=== PATIENT | male | born 1965 | race Caucasian/White ===

== ENCOUNTER 2021-08-03 00:08 | Emergency (ER) | payer OTHER ==
[~2021-08-03] VITALS: Ht 175.3 cm; Wt 94.2 kg
--- NOTE | 2021-08-03 00:22 | PHYS DOC ---
Past History Past Medical History: Cancer Past Medical History thyroid cancer- Surgery 2006,2008, 2009, , Radiation, 2019 glottic scarring General Adult HPI: HPI: " I was uriating and I guess black out .. Hit my head... " " I ve had thyroid cancer.. and a bunch of treatments... " I have passed out before.." Patient is a 55 year old male who presents with syncope while urinating. Patient fell forward from sitting position and struck his head and face. Patient only had transient loss of consciousness. Has contusions over left side of face and eye. Patient denies any recent changes in medication. No recent travel. No specific ill contacts. Up-to-date with vaccinations. Follows with primary Dr. Patel. GSC 15. NIH. 0 initial exam completed in Radiology just before CT. No history of fever refill chills. Has had COVID vaccination. Currently following for his thyroid cancer. Review of Systems: Review of Systems: Constitutional: Denies fever or chills Eyes: Denies change in visual acuity HENT: Complains of head and facial contusion Respiratory: Denies cough or shortness of breath Cardiovascular: Denies chest pain or edema GI: Denies abdominal pain, nausea, vomiting, bloody stools or diarrhea : Denies dysuria Musculoskeletal: Denies back pain or joint pain Integument: Denies rash Neurologic: Denies headache, focal weakness or sensory changes Endocrine: Denies polyuria or polydipsia Lymphatic: Denies swollen glands Psychiatric: Denies depression or anxiety Family History: Family History: Noncontributory to presentation Current Medications: Current Meds: See nursing for home meds Allergies: Allergies: No known drug allergies Physical Exam: PE: Constitutional: Well developed, well nourished, no acute distress, non-toxic appearance. [] HENT: Normocephalic, contusion over forehead and left occipital region, bilateral external ears normal, oropharynx moist, no oral exudates, nose normal. [] Eyes: PERRLA, EOMI, conjunctiva normal, no discharge. [] No field loss. Limited fundi exam benign. No visual changes. Neck: Normal range of motion, no tenderness, supple, no stridor. Scarring. No bruit Cardiology-regular rate and rhythm no appreciable murmur. Lungs & Thorax: Bilateral breath sounds clear to auscultation [] Abdomen: Bowel sounds normal, soft, no tenderness, no masses, no pulsatile masses. [] Skin: Warm, dry, no erythema, no rash. [] Back: No tenderness, no CVA tenderness. [] Extremities: No tenderness, no cyanosis, no clubbing, ROM intact, no edema. [] Neurologic: Alert and oriented X 3, moves all extremities on request. Web Knitter equal. Distal sensory. No drift, No focal deficits noted. [] DTRs +2 patella and brachial. No drift. Web Knitter equal. Patient is ambulatory without problems Psychologic: Affect normal, judgement normal, mood normal. [] states he is currently at his baseline normal. EKG: EKG: My interpretation EKG shows a sinus bradycardia at 57 bpm. No acute morphology. Time of this EKG is 0.51. My interpretation of EKG #2 shows a sinus rhythm at 67 bpm no significant interval change from prior EKG time of this EKG is 325 hours [] Radiology/Procedures: Radiology/Procedures: [place] [address] IMAGING REPORT Signed PATIENT: TREY SUAZOOUNT: [id number] : 1965 LOCATION: ER AGE: 55 SEX: M EXAM STATUS: PRE ER ORD. PHYSICIAN: KESHAV HECTOR MD REASON: SYNCOPE, OMNI 350, 100ml PROCEDURE: CT ANGIOGRAPHY CHEST CTA Chest with contrast: Clinical History: Syncope Shortness of breath. Axial helical images of the chest were obtained after the administration of 100 cc of IV Omni 350 and timed appropriately for a pulmonary arterial study. Conventional axial reconstruction was performed in addition to coronal, sagittal and bilateral oblique MIP (maximum intensity projection). This study was ordered to detect possible pulmonary embolism. There are no filling defects to suggest pulmonary embolism. The lungs and pleural margins are clear. There is no mediastinal or hilar lymphadenopathy. The thoracic aorta appears normal. Impression: 1. No evidence of pulmonary embolism. 2. No significant findings. PQRS Compliance Statement: One or more of the following individualized dose reduction techniques were utilized for this examination: 1. Automated exposure control 2. Adjustment of the mA and/or kV according to patient size 3. Use of iterative reconstruction technique Electronically signed by: Akanksha Valenzuela III, MD (08/03/2021 1:01 AM) [facility] DICTATED AND SIGNED BY: AKANKSHA VALENZUELA III, MD DATE: 08/03/2157 CC: DELMAR PATEL DO; KESHAV HECTOR MD ~MTH0 [address] [address] IMAGING REPORT Signed PATIENT: TREY SUAZO: [id number] : 1965 LOCATION: ER AGE: 55 SEX: M EXAM STATUS: PRE ER ORD. PHYSICIAN: KESHAV HECTOR MD REASON: fall - hit head PROCEDURE: CT MAXILLOFACIAL WO CONTRAST CT maxillofacial without contrast History: Fall, hit head Axial helical images of the face were obtained without contrast. Axial and coronal reconstruction was performed. The nasal septum is mostly midline. The ostiomeatal complexes are narrow but patent. The paranasal sinuses are clear. The visualized osseous structures appear intact. The orbits appear normal. Impression: No acute findings. PQRS Compliance Statement: One or more of the following individualized dose reduction techniques were utilized for this examination: 1. Automated exposure control 2. Adjustment of the mA and/or kV according to patient size 3. Use of iterative reconstruction technique Electronically signed by: Akanksha Valenzuela III, MD (08/03/2021 12:58 AM) [facility] DICTATED AND SIGNED BY: AKANKSHA VALENZUELA III, MD DATE: 08/03/2154 CC: DELMAR PATEL DO; KESHAV HECTOR MD ~MTH0 0 [[address] [address] IMAGING REPORT Signed PATIENT: TREY SUAZO: [id number] : 1965 LOCATION: ER AGE: 55 SEX: M EXAM STATUS: PRE ER ORD. PHYSICIAN: KESHAV HECTOR MD REASON: fall - hit head PROCEDURE: CT MAXILLOFACIAL WO CONTRAST CT maxillofacial without contrast History: Fall, hit head Axial helical images of the face were obtained without contrast. Axial and coronal reconstruction was performed. The nasal septum is mostly midline. The ostiomeatal complexes are narrow but patent. The paranasal sinuses are clear. The visualized osseous structures appear intact. The orbits appear normal. Impression: No acute findings. RS Compliance Statement: One or more of the following individualized dose reduction techniques were utilized for this examination: 1. Automated exposure control 2. Adjustment of the mA and/or kV according to patient size 3. Use of iterative reconstruction technique Electronically signed by: Akanksha Valenzuela III, MD (08/03/2021 12:58 AM) [facility] DICTATED AND SIGNED BY: AKANKSHA VALENZUELA III, MD DATE: 08/03/2154 CC: DELMAR PATEL DO; KESHAV HECTOR MD ~MTH0 0 ][place] [address] IMAGING REPORT Signed PATIENT: TREY SUAZOOUNT: [id number] : 1965 LOCATION: ER AGE: 55 SEX: M EXAM STATUS: PRE ER ORD. PHYSICIAN: KESHAV HECTOR MD REASON: syncope PROCEDURE: PORTABLE CHEST 1V XR CHEST 1V Clinical History: Reason: syncope / Spl. Instructions: / History: Technique: AP view of the chest was obtained at 08/03/2021 12:25 AM. Comparison: None. Findings: The cardiomediastinal silhouette is normal. The pulmonary vasculature is normal. The lungs and pleural margins are clear. Impression: No evidence of an acute cardiopulmonary process. Electronically signed by: Akanksha Valenzuela III, MD (08/03/2021 1:25 AM) [facility] DICTATED AND SIGNED BY: AKANKSHA VALENZUELA III, MD DATE: 08/03/21124 CC: DELMAR PATEL DO; KESHAV HECTOR MD ~MTH0 0 Heart Score: C/O Chest Pain: N/A HEART Score for Chest Pain: HEART Score for Chest Pain Response (Comments) Value History Slighlty/Non-Suspicious 0 ECG Normal 0 Age < 45 0 Risk Factors 1 or 2 Risk Factors 1 Troponin < Normal Limit 0 Total 1 Risk Factors: Risk Factors: DM, Current or recent (<one month) smoker, HTN, HLP, family history of CAD, obesity. Risk Scores: Score 0 - 3: 2.5% MACE over next 6 weeks - Discharge Home Score 4 - 6: 20.3% MACE over next 6 weeks - Admit for Clinical Observation Score 7 - 10: 72.7% MACE over next 6 weeks - Early Invasive Strategies Course & Med Decision Making: Course & Med Decision Making Pertinent Labs and Imaging studies reviewed. (See chart for details) Patient's x-rays and CTs were clouded to for their review. Patient return if any concerns. Risk and benefits of discharge discussed with patient. Patient defers admission at this time. Impression: 1. Syncope while Urinating 2. History of thyroid cancer [] Dragon Disclaimer: Dragon Disclaimer: This electronic medical record was generated, in whole or in part, using a voice recognition dictation system. Departure Departure: Referrals: DELMAR PATEL DO (PCP) [place] Disclaimer This chart was dictated in whole or in part using Voice Recognition software in a busy, high-work load, and often noisy Emergency Department environment. It may contain unintended and wholly unrecognized errors or omissions. KESHAV HECTOR MD Aug 03, 2021 00:22
[2021-08-03] MEDS ORDERED: IV RINGERS SOLUTION,LACTATED 1,000 ML IV SCH (00:30)
[2021-08-03 00:45] LABS: BASO % 1 % (0-3); EOS # 0.2 x10^3/uL (0.0-0.7); EOS % 3 % (0-3); HEMATOCRIT 44.8 % (39.0-53.0); HEMOGLOBIN 14.9 g/dL (13.0-17.5); LYMPH # 2.1 x10^3/uL (1.0-4.8); LYMPH % 32 % (24-48); MEAN CORPUSCULAR HEMOGLOBIN 30 pg (25-35); MEAN CORPUSCULAR HGB CONC 33 g/dL (31-37); MEAN CORPUSCULAR VOLUME 89 fL (79-100); MONO # 0.6 x10^3/uL (0.0-1.1); MONO % 10 % (0-9); NEUT # 3.6 x10^3uL (1.8-7.7); NEUT % 55 % (31-73); PLATELET COUNT 177 x10^3/uL (140-400); RED BLOOD COUNT 5.02 x10^6/uL (4.30-5.70); RED CELL DISTRIBUTION WIDTH 13.2 % (11.5-14.5); WHITE BLOOD COUNT 6.5 x10^3/uL (4.0-11.0)
[2021-08-03] MEDS ORDERED: IOHEXOL 350 MG/ML 100 ML VIAL. IV ONE ×2 (00:45→04:30)
--- NOTE | 2021-08-03 00:52 | RAD ---
CT Head W/O Contrast: History: Reason: CODE STROKE, HEADACHE, SYNCOPE, fall - hit head / Spl. Instructions: / History: Comparison: none Axial images were obtained without contrast. The le and white matter appears normal and symmetrical for the patients age. There is no mass effe ct, extraaxial fluid collections or hydrocephalus. There is no gross bleed. There is no focal loss of le-white matter distinction to suggest acute ischemia, i.e. stroke. Impression: No acute findings. End impression CT C-Spine without contrast: Clinical History: Reason: CODE STROKE, HEADACHE, SYNCOPE, fall - hit head / Spl. Instructions: / His tory: Technique: Axial helical images of the cervical spine were obtained without contrast, axial coronal and sagittal reconstruction was performed. Findings: There is no loss of vertebral body stature. There is no prevertebral soft tissue swelling. The vert ebral bodies are well aligned. The C1-C2 relationship is normal. The visualized osseous structures a ppear normal. There is straightening of the normal cervical lordosis which can be positional or can b e secondary to muscle spasm. Evaluation of the central canal is limited without contrast. Impression: No acute findings. Clinical correlation suggested. End impression These results were called to Dr. Lacy at the time of dictation. PQRS Compliance Statement: One or more of the following individualized dose reduction techniques were utilized for this examinat ion: 1. Automated exposure control 2. Adjustment of the mA and/or kV according to patient size 3. Use of iterative reconstruction technique FOR INTERNAL CODING PURPOSES Critical result: These results were called to Dr. Lacy at the time of dictation. RESULT CODE: (C) Electronically signed by: Emanuel Maradiaga III, MD (08/03/2021 12:50 AM) [facility]
[2021-08-03 00:55] LABS: CALCIUM 9.5 mg/dL (8.5-10.1); CREATININE 1.4 mg/dL (0.7-1.3); GFR 52.4; POTASSIUM 4.2 mmol/L (3.5-5.1)
--- NOTE | 2021-08-03 00:58 | EKG ---
[address] [address] Test Date: 2021-08-03 Test Time: 00:51:40 Pat Name: TREY SUAZO Department: Room: Gender: M Event Decorator: : 1965 Requested By: KESHAV HECTOR Order Number: [id number] Reading MD: Chuy Reyes Measurements Intervals [place] Rate: 57 P: 34 OR: 184 QRS: 46 QRSD: 98 T: 34 QT: 418 QTc: 410 Interpretive Statements SINUS RHYTHM NORMAL ECG RI6.02 No previous ECG available for comparison Electronically Signed On 08-03-2021 14:17:23 STACK SUPERVISOR by Chuy Reyes
[2021-08-03] MEDS ORDERED: CONTRAST GIVEN. MC PRN (01:00)
--- NOTE | 2021-08-03 01:01 | RAD ---
CT maxillofacial without contrast History: Fall, hit head Axial helical images of the face were obtained without contrast. Axial and coronal reconstruction was performed. The nasal septum is mostly midline. The ostiomeatal complexes are narrow but patent. The paranasal si nuses are clear. The visualized osseous structures appear intact. The orbits appear normal. Impression: No acute findings. PQRS Compliance Statement: One or more of the following individualized dose reduction techniques were utilized for this examinat ion: 1. Automated exposure control 2. Adjustment of the mA and/or kV according to patient size 3. Use of iterative reconstruction technique Electronically signed by: Emanuel Maradiaga III, MD (08/03/2021 12:58 AM) [facility]
--- NOTE | 2021-08-03 01:04 | RAD ---
CTA Chest with contrast: Clinical History: Syncope Shortness of breath. Axial helical images of the chest were obtained after the administration of 100 cc of IV Omni 350 and timed appropriately for a pulmonary arterial study. Conventional axial reconstruction was performed in addition to coronal, sagittal and bilateral oblique MIP (maximum intensity projection). This sj dy was ordered to detect possible pulmonary embolism. There are no filling defects to suggest pulmonary embolism. The lungs and pleural margins are clear. There is no mediastinal or hilar lymphadenopathy. The thoracic aorta appears normal. Impression: 1. No evidence of pulmonary embolism. 2. No significant findings. PQRS Compliance Statement: One or more of the following individualized dose reduction techniques were utilized for this examinat ion: 1. Automated exposure control 2. Adjustment of the mA and/or kV according to patient size 3. Use of iterative reconstruction technique Electronically signed by: Emanuel Maradiaga III, MD (08/03/2021 1:01 AM) [facility]
[2021-08-03 01:07] LABS: DIRECT BILIRUBIN 0.1 mg/dL (0.0-0.2); MAGNESIUM 2.3 mg/dL (1.8-2.4); TOTAL BILIRUBIN 0.4 mg/dL (0.2-1.0); TOTAL PROTEIN 7.3 g/dL (6.4-8.2)
--- NOTE | 2021-08-03 01:28 | RAD ---
XR CHEST 1V Clinical History: Reason: syncope / Spl. Instructions: / History: Technique: AP view of the chest was obtained at 08/03/2021 12:25 AM. Comparison: None. Findings: The cardiomediastinal silhouette is normal. The pulmonary vasculature is normal. The lungs and pleura l margins are clear. Impression: No evidence of an acute cardiopulmonary process. Electronically signed by: Emanuel Maradiaga III, MD (08/03/2021 1:25 AM) [facility]
[2021-08-03 02:01] LABS: BACTERIA,URINE 0 /HPF (0-FEW); BILIRUBIN,URINE NEG (NEG); CLARITY,URINE CLEAR; COLOR,URINE YELLOW; GLUCOSE,URINE NEG (NEG); NITRITE,URINE NEG (NEG); RBC,URINE RARE /HPF (0-2); UROBILINOGEN,URINE 0.2 mg/dL (0.2 mg/dL); WBC,URINE RARE /HPF (0-4)
[2021-08-03 02:04] LABS: AMPHETAMINE/METHAMPHETAMINE NEG (NEG); BARBITURATES NEG (NEG); BENZODIAZEPINES NEG (NEG); CANNABINOIDS NEG (NEG); COCAINE NEG (NEG); METHADONE NEG (NEG); OPIATES NEG (NEG); PHENCYCLIDINE NEG (NEG)
--- NOTE | 2021-08-03 03:35 | EKG ---
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
[2021-08-03 05:20] VITALS: BP 104/70
--- NOTE | 2021-08-03 05:21 | RAD ---
CTA head and CTA neck with contrast History: Syncope and fall Technique: Axial images were obtained of the head without contrast and axial helical images were obta ined of the head and neck after the intravenous administration of 60 mL of Omni 350 IV contrast. Mul tiplanar reconstruction was performed on an independent work station including MIP imaging and 3D ang iographic imaging. Comparison: none CTA head with and without contrast. Findings: Brain: The le and white matter appears symmetrical. There is no mass effect, extra-axial fluid co llections or hydrocephalus. There is no gross bleed. Distal carotid arteries: normal caliber Vertebral basilar system normal Major cerebral arteries: normal Impression: no acute findings end impression CTA neck with contrast: Findings: Aortic arch and origin of great vessels: normal Common carotid arteries: Right: normal Left: normal Internal carotid arteries: Right: normal Left: normal Vertebral basilar system normal Impression: No significant stenosis. PQRS Compliance Statement - Stenosis calculations for CT, MR and conventional angiography are based u sara measurement of the distal ICA diameter in accordance with the NASCET methodology. Stenosis calcu lations for carotid ultrasound studies are derived from validated velocity criteria which are known t o correlate with the NASCET methodology. PQRS Compliance Statement: One or more of the following individualized dose reduction techniques were utilized for this examinat ion: 1. Automated exposure control 2. Adjustment of the mA and/or kV according to patient size 3. Use of iterative reconstruction technique Electronically signed by: Emanuel Maradiaga III, MD (08/03/2021 5:19 AM) [facility]
== END 2021-08-03 05:51 | disposition home or self-care (01) ==
LOC: ER 00:08
DX: S00.83XA Contusion of other part of head, initial encounter (principal); S00.03XA Contusion of scalp, initial encounter; R55 Syncope and collapse; Z20.822 Contact with and (suspected) exposure to COVID-19; Z85.850 Personal history of malignant neoplasm of thyroid; W18.39XA Other fall on same level, initial encounter; Y93.89 Activity, other specified; Y92.89 Other specified places as the place of occurrence of the external cause; Y99.8 Other external cause status
CPT/HCPCS: 36415; 70450; 70486; 70496; 70498; 71045; 71275; 72125; 80048; 80076; 80307; 81001; 82550; 82947; 83690; 83735; 83880; 84443; 84484; 85025; 85379; 85610; 85730; 87426; 93005; 96360; 99285; C9803; J7120; Q9967; U0003